=== PATIENT | female | born 1980 | race Caucasian/White ===

== ENCOUNTER 2019-06-24 18:00 | Emergency (ER) | payer OTHER ==
[~2019-06-24] VITALS: Ht 162.6 cm; Wt 117.9 kg
[2019-06-24] MEDS ORDERED: PROZAC40 MG PO (18:20)
[2019-06-24] MEDS ORDERED: LEVOXYL175 MCG PO (18:20)
[2019-06-24] MEDS ORDERED: PROPRANOLOL 20M20 MG PO (18:21)
[2019-06-24 18:41] LABS: ABSOLUTE NEUTROPHILS 4.4 thou/uL (1.4-8.2); BASOPHILS 1.3 % (0.0-2.0); EOSINOPHILS 2.8 % (0.0-3.0); HEMATOCRIT 37.1 % (37.0-47.0); HEMOGLOBIN 12.1 gm/dL (12.0-15.0); LYMPHOCYTES 31.9 % (24.0-44.0); MCH 28.9 pg (26.0-34.0); MCHC 32.7 g/dL (28.0-37.0); MCV 88.3 fL (80.0-100.0); MONOCYTES 7.7 % (1.0-8.0); PLATELET COUNT 377 thou/uL (150-400); POLYS 56.3 % (36.0-66.0); RDW 13.5 % (10.5-14.5); WBC 7.8 thou/uL (4.0-11.0)
[2019-06-24 19:04] LABS: CALCIUM 8.6 mg/dL (8.5-10.1); POTASSIUM 4.5 mmol/L (3.5-5.1)
[2019-06-24 19:08] LABS: ALBUMIN 3.4 g/dL (3.4-5.0); TOTAL BILIRUBIN 0.5 mg/dL (<0.1-1.0); TOTAL PROTEIN 7.7 g/dL (6.4-8.2)
[2019-06-24 19:18] LABS: URINE BILIRUBIN NEGATIVE (Negative); URINE BLOOD TRACE (Negative); URINE CLARITY CLEAR; URINE COLOR YELLOW; URINE GLUCOSE-RANDOM* NEGATIVE (Negative); URINE KETONES NEGATIVE (Negative); URINE LEUKOCYTES-REFLEX TRACE (Negative); URINE NITRITE-REFLEX NEGATIVE (Negative); URINE PROTEIN (DIPSTICK) NEGATIVE (Negative); URINE UROBILINOGEN 0.2 E.U./dl (0.2-1.0)
[2019-06-24] MEDS ORDERED: ONDANSETRON ODT8 MG PO (19:54)
[2019-06-24] MEDS ORDERED: TRAMADOL 50 MG50 MG PO (19:54)
[2019-06-24 20:45] VITALS: BP 107/68
== END 2019-06-24 20:45 | disposition home or self-care (01) ==
LOC: ER 18:00
PROVIDERS: Emergency Medicine
DX: R11.2 Nausea with vomiting, unspecified (principal); R19.7 Diarrhea, unspecified; R10.31 Right lower quadrant pain; F41.9 Anxiety disorder, unspecified; F32.9 Major depressive disorder, single episode, unspecified; Z98.84 Bariatric surgery status

== ENCOUNTER 2019-06-26 02:01 | Emergency (ER) | payer OTHER ==
[~2019-06-26] VITALS: Ht 162.6 cm; Wt 117.9 kg
[~2019-06-26 02:01] MED LIST: LEVOXYL175 MCG PO; ONDANSETRON ODT8 MG PO; PROPRANOLOL 20M20 MG PO; PROZAC40 MG PO; TRAMADOL 50 MG50 MG PO
[2019-06-26] MEDS ORDERED: TEMAZEPAM15 MG PO (02:22)
[2019-06-26 02:32] LABS: URINE BILIRUBIN NEGATIVE (Negative); URINE BLOOD 2+ (Negative); URINE CLARITY CLEAR; URINE COLOR YELLOW; URINE GLUCOSE-RANDOM* NEGATIVE (Negative); URINE KETONES NEGATIVE (Negative); URINE LEUKOCYTES-REFLEX NEGATIVE (Negative); URINE NITRITE-REFLEX NEGATIVE (Negative); URINE PROTEIN (DIPSTICK) NEGATIVE (Negative); URINE SPECIFIC GRAVITY 1.015 (1.005-1.035); URINE UROBILINOGEN 0.2 E.U./dl (0.2-1.0)
[2019-06-26 03:10] LABS: BACTERIA-REFLEX 1-9 Few /HPF (None Seen); CASTS None Seen /LPF (None Seen); CRYSTALS None Seen /LPF (None Seen); MUCUS 0-3 Light strn/LPF (None Seen); SQUAMOUS 0-3 Few /LPF (0-3); URINE RBC 3-10 Few /HPF (0-2); URINE WBC-REFLEX 0-5 Rare /HPF (0-5)
[2019-06-26 03:11] LABS: ABSOLUTE NEUTROPHILS 4.5 thou/uL (1.4-8.2); BASOPHILS 1.4 % (0.0-2.0); EOSINOPHILS 2.9 % (0.0-3.0); HEMATOCRIT 33.3 % (37.0-47.0); LYMPHOCYTES 30.4 % (24.0-44.0); MCH 29.2 pg (26.0-34.0); MCHC 33.1 g/dL (28.0-37.0); MCV 88.4 fL (80.0-100.0); MONOCYTES 6.8 % (1.0-8.0); PLATELET COUNT 335 thou/uL (150-400); POLYS 58.5 % (36.0-66.0); RBC 3.77 mil/uL (4.20-5.00); RDW 13.3 % (10.5-14.5); WBC 7.7 thou/uL (4.0-11.0)
[2019-06-26 03:20] LABS: CALCIUM 8.1 mg/dL (8.5-10.1); CREATININE 0.9 mg/dL (0.6-1.0); POTASSIUM 4.3 mmol/L (3.5-5.1)
[2019-06-26 03:25] LABS: ALBUMIN 3.2 g/dL (3.4-5.0); TOTAL BILIRUBIN 0.3 mg/dL (<0.1-1.0)
[2019-06-26] MEDS ORDERED: NORCO 5-325 TA1 EAC1 PO (07:17)
[2019-06-26] MEDS ORDERED: SENNA-DOCUSATE1 EAC1 PO (07:17)
[2019-06-26 08:08] VITALS: BP 106/47
== END 2019-06-26 08:09 | disposition home or self-care (01) ==
LOC: ER 02:01
PROVIDERS: Emergency Medicine
DX: N83.201 Unspecified ovarian cyst, right side (principal); R11.2 Nausea with vomiting, unspecified; F41.9 Anxiety disorder, unspecified; F32.9 Major depressive disorder, single episode, unspecified; Z87.442 Personal history of urinary calculi

== ENCOUNTER 2020-01-07 22:18 | Emergency (ER) | payer OTHER ==
[~2020-01-07] VITALS: Ht 162.6 cm; Wt 120.2 kg
[~2020-01-07 22:18] MED LIST changes: +NORCO 5-325 TA1 EAC1 PO; +SENNA-DOCUSATE1 EAC1 PO; +TEMAZEPAM15 MG PO
[2020-01-07 23:47] LABS: BASOPHILS 0.6 % (0.0-2.0); EOSINOPHILS 1.4 % (0.0-3.0); HEMATOCRIT 37.4 % (37.0-47.0); LYMPHOCYTES 34.4 % (24.0-44.0); MCH 31.1 pg (26.0-34.0); MCHC 34.8 g/dL (28.0-37.0); MCV 89.5 fL (80.0-100.0); MONOCYTES 6.7 % (1.0-8.0); PLATELET COUNT 331 thou/uL (150-400); POLYS 56.9 % (36.0-66.0); RBC 4.18 mil/uL (4.20-5.00); RDW 14.2 % (10.5-14.5); WBC 8.7 thou/uL (4.0-11.0)
[2020-01-07 23:48] LABS: URINE BILIRUBIN NEGATIVE (Negative); URINE BLOOD NEGATIVE (Negative); URINE CLARITY CLEAR; URINE COLOR YELLOW; URINE GLUCOSE-RANDOM* NEGATIVE (Negative); URINE KETONES NEGATIVE (Negative); URINE LEUKOCYTES-REFLEX NEGATIVE (Negative); URINE NITRITE-REFLEX NEGATIVE (Negative); URINE PROTEIN (DIPSTICK) NEGATIVE (Negative); URINE UROBILINOGEN 0.2 E.U./dl (0.2-1.0)
[2020-01-08 00:11] LABS: CALCIUM 8.3 mg/dL (8.5-10.1); CREATININE 0.8 mg/dL (0.6-1.0); POTASSIUM 3.9 mmol/L (3.5-5.1)
[2020-01-08 00:15] LABS: ALBUMIN 3.4 g/dL (3.4-5.0); DIRECT BILIRUBIN 0.1 mg/dL (<0.1-0.2); TOTAL BILIRUBIN 0.5 mg/dL (0.2-1.0); TOTAL PROTEIN 7.4 g/dL (6.4-8.2)
[2020-01-08] MEDS ORDERED: PHENERGAN50 MG RECTAL (03:52)
[2020-01-08] MEDS ORDERED: NORCO 5-325 TA1 EAC2 PO (03:52)
[2020-01-08 04:06] VITALS: BP 120/65
== END 2020-01-08 04:08 | disposition home or self-care (01) ==
LOC: ER 22:18
PROVIDERS: Emergency Medicine
DX: N83.201 Unspecified ovarian cyst, right side (principal); R11.10 Vomiting, unspecified; R19.7 Diarrhea, unspecified; M54.5 Low back pain; R39.11 Hesitancy of micturition; F32.9 Major depressive disorder, single episode, unspecified; F41.9 Anxiety disorder, unspecified; Z98.84 Bariatric surgery status; Z90.49 Acquired absence of other specified parts of digestive tract; Z79.899 Other long term (current) drug therapy

== ENCOUNTER 2020-02-18 21:32 | Inpatient (IN) | payer OTHER ==
[~2020-02-18] VITALS: Ht 162.6 cm; Wt 116.6 kg
[~2020-02-18 21:32] MED LIST changes: +NORCO 5-325 TA1 EAC2 PO; +PHENERGAN50 MG RECTAL
[2020-02-18 21:33] VITALS: BP 119/66
[2020-02-18 21:55] LABS: URINE BILIRUBIN NEGATIVE (Negative); URINE BLOOD 3+ (Negative); URINE CLARITY CLEAR; URINE COLOR YELLOW; URINE GLUCOSE-RANDOM* NEGATIVE (Negative); URINE KETONES NEGATIVE (Negative); URINE LEUKOCYTES-REFLEX NEGATIVE (Negative); URINE NITRITE-REFLEX NEGATIVE (Negative); URINE PROTEIN (DIPSTICK) 1+ (Negative); URINE SPECIFIC GRAVITY 1.025 (1.005-1.035); URINE UROBILINOGEN 0.2 E.U./dl (0.2-1.0)
[2020-02-18 21:56] LABS: BASOPHILS 0.6 % (0.0-2.0); EOSINOPHILS 1.6 % (0.0-3.0); HEMOGLOBIN 12.5 gm/dL (12.0-15.0); LYMPHOCYTES 24.8 % (24.0-44.0); MCH 30.3 pg (26.0-34.0); MCHC 34.7 g/dL (28.0-37.0); MCV 87.3 fL (80.0-100.0); MONOCYTES 5.3 % (1.0-8.0); PLATELET COUNT 358 thou/uL (150-400); POLYS 67.7 % (36.0-66.0); RBC 4.13 mil/uL (4.20-5.00); RDW 13.7 % (10.5-14.5); WBC 8.9 thou/uL (4.0-11.0)
[2020-02-18 22:11] LABS: CALCIUM 8.8 mg/dL (8.5-10.1); POTASSIUM 3.6 mmol/L (3.5-5.1)
[2020-02-18 22:16] LABS: CASTS None Seen /LPF (None Seen); CRYSTALS None Seen /LPF (None Seen); SQUAMOUS 4-10 Moderate /LPF (0-3)
[2020-02-18 22:17] LABS: ALBUMIN 3.4 g/dL (3.4-5.0); TOTAL BILIRUBIN 0.4 mg/dL (0.2-1.0); TOTAL PROTEIN 7.7 g/dL (6.4-8.2)
[2020-02-18 22:17] LABS: URINE WBC-REFLEX None Seen /HPF (0-5)
[2020-02-19 04:10] VITALS: BP 119/53
[2020-02-19 04:13] VITALS: BP 119/53
[2020-02-19 04:58] VITALS: BP 114/56
--- NOTE | 2020-02-19 06:22 | NUR ---
PT ARRIVED FROM ER @0430 A&OX4. ADMISSION DONE AND PT ORIENTED TO THE UNIT. PT C/O PAIN 8/10 IN RLG AND NAUSEA. PT NPO. MEDICATION GIVEN SEE EMAR. NEW IV 22G INSERTED IN LEFT FA. PT UP AD EKATERINA. FALL EDUCATION PROVIDED. CALL LIGHT AT REACH AND WILL CONT TO MONITOR.
[2020-02-19 07:55] VITALS: BP 105/59
[2020-02-19 15:30] VITALS: BP 117/61
--- NOTE | 2020-02-19 16:15 | NUR ---
ASSESSMENT: CM REVIEWED CHART AND SPOKE WITH PATIENT. PT IS ALERT AND ORIENTED X4. PT IS HERE DUE TO ABDOMINAL PAIN. PT REPORTS THAT SHE LIVES IN AN APT WITH HER AND CHILDREN. PT REPORTS 8 STEPS WITH HANDRAILS TO ENTER AND NO STEPS ONCE INSIDE. PT REPORTS BEING FULLY INDEPENDENT WITH ADLS AND AMBULATION. PT REPORTS NO HX OF HH OR SNF. CM DISCUSSED ROLE. PT DOES NOT ANTICIPATE HAVING ANY NEEDS PRIOR TO DISCHARGE. CM WILL CONTINUE TO FOLLOW TO ASSIST NEEDED.
--- NOTE | 2020-02-19 19:45 | NUR ---
PT ASSESSED AT START OF SHIFT. C/O ABD PAIN AND NAUSEA THIS AM. MORPHINE CHANGED TO FENTANYL AND HAS BEEN WORKING BETTER. DID NOT WANT ANY CLEARS EXCEPT WATER. PLAN FOR EGD IN AM. NPO AFTER MIDNOC.
--- NOTE | 2020-02-20 03:04 | NUR ---
PT ASSESSED AT START OF SHIFT. FENTANYL GIVEN FOR ABD PAIN 12/15. ZOFRAN ALSO GIVEN FOR NAUSEA NO EMESIS. PT UP AD EKATERINA. IV INTACT AND FLUIDS INFUSING. PT NPO AFTER MIDNIGHT FOR EGD TOMORROW. WILL CONT TO MONITOR.
[2020-02-20 05:30] VITALS: BP 120/62
[2020-02-20 06:27] LABS: HEMATOCRIT 33.6 % (37.0-47.0); HEMOGLOBIN 11.3 gm/dL (12.0-15.0); MCH 29.6 pg (26.0-34.0); MCHC 33.7 g/dL (28.0-37.0); RBC 3.82 mil/uL (4.20-5.00); RDW 13.7 % (10.5-14.5); WBC 6.7 thou/uL (4.0-11.0)
[2020-02-20 06:29] LABS: CALCIUM 8.4 mg/dL (8.5-10.1); CREATININE 0.9 mg/dL (0.6-1.0); POTASSIUM 4.2 mmol/L (3.5-5.1)
[2020-02-20] MEDS ORDERED: LORCET 5-325 M1 EACH PO (11:25)
[2020-02-20] MEDS ORDERED: PROTONIX40 M2 PO (11:25)
[2020-02-20] MEDS ORDERED: ONDANSETRON HCL4 M2 PO (11:25)
[2020-02-20 11:38] VITALS: BP 120/62
--- NOTE | 2020-02-20 14:21 | NUR ---
Assumed care of pt. at 0700. Pt. was calm and cooperative. Pt. complain of pain in abdominal region. Pt. was taken down for EGD around 0800. Pt. returned to unit, was assessed by Dr. Porter and cleared for discharge. Discharge teaching performed. Pt. discharged off unit with belongings and .
--- NOTE | 2020-02-20 15:07 | NUR ---
ON-GOING ASSESSMENT: PT HAS ORDERS TO DISCHARGE HOME TODAY NO NEEDS.
== END 2020-02-20 13:09 | disposition home or self-care (01) | DRG 392 ==
LOC: ER 21:32 → EROBS 02-19 03:58 → 4S 02-19 03:58
PROVIDERS: Emergency Medicine; Nurse Practitioner Family; ADMIT Hospitalist; ATTEND Hospitalist
PROC: 0DJ08ZZ Inspection of Upper Intestinal Tract, Via Natural or Artificial Opening Endoscopic (ICD-10-PCS; principal; 2020-02-20)
DX: K52.9 Noninfective gastroenteritis and colitis, unspecified (principal); K92.0 Hematemesis; K83.09 Other cholangitis; R10.9 Unspecified abdominal pain; F32.9 Major depressive disorder, single episode, unspecified; K21.9 Gastro-esophageal reflux disease without esophagitis; K27.9 Peptic ulcer, site unspecified, unspecified as acute or chronic, without hemorrhage or perforation; F41.9 Anxiety disorder, unspecified; Z20.828 Contact with and (suspected) exposure to other viral communicable diseases; Z98.84 Bariatric surgery status; Z90.49 Acquired absence of other specified parts of digestive tract; Z79.899 Other long term (current) drug therapy
CPT/HCPCS: 10195; 62110; 62900; 70005

== ENCOUNTER 2020-05-27 17:22 | Emergency (ER) | payer OTHER ==
[~2020-05-27] VITALS: Ht 162.6 cm; Wt 106.6 kg
[~2020-05-27 17:22] MED LIST changes: +LORCET 5-325 M1 EACH PO; +ONDANSETRON HCL4 M2 PO; +PROTONIX40 M2 PO
[2020-05-27 17:27] VITALS: BP 157/90
[2020-05-27] MEDS ORDERED: MULTI-BETIC TA1 EACH PO (17:33)
[2020-05-27 17:57] LABS: ABSOLUTE NEUTROPHILS 4.5 thou/uL (1.4-8.2); BASOPHILS 0.7 % (0.0-2.0); EOSINOPHILS 1.1 % (0.0-3.0); HEMOGLOBIN 13.5 gm/dL (12.0-15.0); LYMPHOCYTES 27.2 % (24.0-44.0); MCH 28.6 pg (26.0-34.0); MCHC 32.9 g/dL (28.0-37.0); MONOCYTES 6.8 % (1.0-8.0); PLATELET COUNT 304 thou/uL (150-400); POLYS 64.2 % (36.0-66.0); RBC 4.71 mil/uL (4.20-5.00); RDW 15.4 % (10.5-14.5); WBC 7.1 thou/uL (4.0-11.0)
[2020-05-27 18:13] LABS: CALCIUM 9.3 mg/dL (8.5-10.1); POTASSIUM 3.8 mmol/L (3.5-5.1)
[2020-05-27 18:16] LABS: ALBUMIN 3.5 g/dL (3.4-5.0); DIRECT BILIRUBIN 0.2 mg/dL (<0.1-0.2); TOTAL BILIRUBIN 0.9 mg/dL (0.2-1.0); TOTAL PROTEIN 7.6 g/dL (6.4-8.2)
[2020-05-27 18:49] LABS: URINE BILIRUBIN NEGATIVE (Negative); URINE BLOOD 2+ (Negative); URINE CLARITY CLEAR; URINE COLOR YELLOW; URINE GLUCOSE-RANDOM* NEGATIVE (Negative); URINE KETONES 1+ (Negative); URINE NITRITE-REFLEX NEGATIVE (Negative); URINE PROTEIN (DIPSTICK) NEGATIVE (Negative)
[2020-05-27 18:50] LABS: URINE LEUKOCYTES-REFLEX 3+ (Negative)
[2020-05-27 19:02] LABS: BACTERIA-REFLEX 1-9 Few /HPF (None Seen); CASTS None Seen /LPF (None Seen); CRYSTALS None Seen /LPF (None Seen); MUCUS 0-3 Light strn/LPF (None Seen); SQUAMOUS 4-10 Moderate /LPF (0-3); URINE RBC 0-2 Rare /HPF (0-2)
[2020-05-27] MEDS ORDERED: KEFLEX500 M1 PO (19:48)
== END 2020-05-27 19:57 | disposition home or self-care (01) ==
LOC: ER 17:22
PROVIDERS: Nurse Practitioner
DX: N39.0 Urinary tract infection, site not specified (principal); F32.9 Major depressive disorder, single episode, unspecified; F41.9 Anxiety disorder, unspecified; E66.9 Obesity, unspecified; Z98.84 Bariatric surgery status; Z90.49 Acquired absence of other specified parts of digestive tract; Z79.899 Other long term (current) drug therapy; Z68.41 Body mass index [BMI] 40.0-44.9, adult

== ENCOUNTER 2020-07-14 13:33 | Emergency (ER) | payer OTHER ==
[~2020-07-14] VITALS: Ht 162.6 cm; Wt 105.7 kg
[~2020-07-14 13:33] MED LIST changes: +KEFLEX500 M1 PO; +MULTI-BETIC TA1 EACH PO
[2020-07-14 14:23] LABS: URINE BILIRUBIN NEGATIVE (Negative); URINE BLOOD 2+ (Negative); URINE CLARITY CLEAR; URINE COLOR YELLOW; URINE GLUCOSE-RANDOM* NEGATIVE (Negative); URINE KETONES NEGATIVE (Negative); URINE NITRITE-REFLEX NEGATIVE (Negative); URINE PROTEIN (DIPSTICK) NEGATIVE (Negative); URINE SPECIFIC GRAVITY <= 1.005 (1.005-1.035); URINE UROBILINOGEN 0.2 E.U./dl (0.2-1.0)
[2020-07-14 14:25] LABS: URINE LEUKOCYTES-REFLEX 3+ (Negative)
[2020-07-14 14:31] LABS: ABSOLUTE NEUTROPHILS 5.6 thou/uL (1.4-8.2); BASOPHILS 0.7 % (0.0-2.0); EOSINOPHILS 1.5 % (0.0-3.0); HEMATOCRIT 39.3 % (37.0-47.0); LYMPHOCYTES 22.9 % (24.0-44.0); MCH 28.7 pg (26.0-34.0); MCV 87.1 fL (80.0-100.0); MONOCYTES 5.7 % (1.0-8.0); PLATELET COUNT 310 thou/uL (150-400); POLYS 69.2 % (36.0-66.0); RBC 4.51 mil/uL (4.20-5.00); RDW 14.6 % (10.5-14.5)
[2020-07-14 14:32] LABS: SQUAMOUS >10 Many /LPF (0-3)
[2020-07-14 14:33] LABS: BACTERIA-REFLEX >30 Many /HPF (None Seen); URINE RBC 0-2 Rare /HPF (0-2); URINE WBC-REFLEX 0-5 Rare /HPF (0-5)
[2020-07-14 14:36] LABS: CASTS None Seen /LPF (None Seen); CRYSTALS None Seen /LPF (None Seen)
[2020-07-14 14:38] LABS: CALCIUM 8.7 mg/dL (8.5-10.1); CREATININE 0.9 mg/dL (0.6-1.0); POTASSIUM 3.9 mmol/L (3.5-5.1)
[2020-07-14 14:44] LABS: ALBUMIN 3.3 g/dL (3.4-5.0); TOTAL BILIRUBIN 0.6 mg/dL (0.2-1.0); TOTAL PROTEIN 7.5 g/dL (6.4-8.2)
[2020-07-14] MEDS ORDERED: CIPRO500 M1 PO (18:14)
[2020-07-14] MEDS ORDERED: PHENERGAN 25 MG25 M1 PO (18:14)
[2020-07-14] MEDS ORDERED: NORCO5 PO (18:14)
[2020-07-14 18:15] VITALS: BP 128/70
== END 2020-07-14 18:15 | disposition home or self-care (01) ==
LOC: ER 13:33
PROVIDERS: Nurse Practitioner Family
DX: N12 Tubulo-interstitial nephritis, not specified as acute or chronic (principal); Z79.899 Other long term (current) drug therapy

== ENCOUNTER 2020-07-17 19:06 | Inpatient (IN) | payer OTHER ==
[~2020-07-17] VITALS: Ht 162.6 cm; Wt 105.7 kg
[~2020-07-17 19:06] MED LIST changes: +CIPRO500 M1 PO; +NORCO5 PO; +PHENERGAN 25 MG25 M1 PO
[2020-07-17 19:08] VITALS: BP 108/66
[2020-07-17 19:20] LABS: URINE BILIRUBIN NEGATIVE (Negative); URINE BLOOD 1+ (Negative); URINE CLARITY CLEAR; URINE COLOR YELLOW; URINE GLUCOSE-RANDOM* NEGATIVE (Negative); URINE KETONES NEGATIVE (Negative); URINE NITRITE-REFLEX NEGATIVE (Negative); URINE PROTEIN (DIPSTICK) NEGATIVE (Negative); URINE UROBILINOGEN 0.2 E.U./dl (0.2-1.0)
[2020-07-17 19:21] LABS: URINE LEUKOCYTES-REFLEX 3+ (Negative)
[2020-07-17 19:31] LABS: BACTERIA-REFLEX >30 Many /HPF (None Seen); SQUAMOUS >10 Many /LPF (0-3)
[2020-07-17 19:32] LABS: URINE RBC 0-2 Rare /HPF (0-2); URINE WBC-REFLEX 6-15 Few /HPF (0-5); WBC CLUMPS Few (None Seen)
[2020-07-17 19:33] LABS: CASTS None Seen /LPF (None Seen); CRYSTALS None Seen /LPF (None Seen)
[2020-07-17 19:45] LABS: ABSOLUTE NEUTROPHILS 6.2 thou/uL (1.4-8.2); EOSINOPHILS 1.6 % (0.0-3.0); HEMATOCRIT 37.4 % (37.0-47.0); HEMOGLOBIN 12.7 gm/dL (12.0-15.0); LYMPHOCYTES 25.9 % (24.0-44.0); MCH 29.5 pg (26.0-34.0); MCV 86.9 fL (80.0-100.0); PLATELET COUNT 304 thou/uL (150-400); POLYS 65.5 % (36.0-66.0); RDW 15.1 % (10.5-14.5); WBC 9.5 thou/uL (4.0-11.0)
[2020-07-17 19:56] LABS: CALCIUM 9.2 mg/dL (8.5-10.1); POTASSIUM 3.7 mmol/L (3.5-5.1)
[2020-07-17 20:01] LABS: ALBUMIN 3.4 g/dL (3.4-5.0); TOTAL BILIRUBIN 0.4 mg/dL (0.2-1.0); TOTAL PROTEIN 7.5 g/dL (6.4-8.2)
[2020-07-17 21:39] VITALS: BP 109/68
[2020-07-17 22:10] VITALS: BP 115/60
--- NOTE | 2020-07-17 22:45 | NUR ---
Pt. was admitted to the unit accompanied by staff. She is alert and oriented. Pt. was oriented to staff and to the room. She is up ad nory.
[2020-07-17 22:49] VITALS: BP 109/65
--- NOTE | 2020-07-18 05:07 | NUR ---
Pt. rested quietly at intervals during the night when checked on during frequent rounds. She c/o nausea and iv zofran given (see emar) with some relief. Pt. also c/o bilateral flank pain and suprpubic pain. She was medicated for both (see emar) with some relief noted.
[2020-07-18 07:30] VITALS: BP 108/46
--- NOTE | 2020-07-18 17:45 | NUR ---
ASSUMED CARE OF PATIENT AT 0700. ASSESSMENT CHARTED. MEDICATIONS ADMINISTERED PER EMAR. PATIENT IS A&OX4 AND MAKES NEEDS KNOWN. CONTINUES TO AMBULATE INDEPENDENTLY W STEADY GAIT. PATIENT C/O CONSTANT FLANK AND SUPRAPUBIC PAIN, PARTIALLY RELIEVED WITH PRN ANALGESICS. PATIENT DIET ADVANCED TO FULL LIQUIDS AND GIVEN ICE CREAM; TOLERATING W NO ISSUES. IV WENT BAD ON L AC. IRRITATION ON TAPE SITE NOTED BUT NO S/S OF INFILTRATION OR PHLEBITIS. PATIENT TOLERATING LIQUIDS WELL W EXCELLENT PO FLUID INTAKE. SPOUSE AT BEDSIDE. FREQUENT CHECKS ON PATIENT. VOICING NO NEEDS AT THIS TIME. WILL CONTINUE TO MONITOR
[2020-07-18 20:50] VITALS: BP 105/62
--- NOTE | 2020-07-19 03:03 | NUR ---
PT CARE ASSUMED WITH PT IN BED WATCHING TV AT 1900.PT IS A/O X4.PT IS UP AD EKATERINA.PT C/O LOWER ABD PAIN AND AMOS FLANK PAIN.PAIN MANAGED WITH NORCO AND FENTANYL WITH PARTIAL RELIEF.WILL CONTINUE TO MONITOR PER POC
[2020-07-19 09:40] VITALS: BP 110/57
[2020-07-19 11:55] VITALS: BP 92/54
[2020-07-19 13:44] LABS: HEMATOCRIT 31.9 % (37.0-47.0); MCH 29.3 pg (26.0-34.0); MCHC 33.1 g/dL (28.0-37.0); MCV 88.6 fL (80.0-100.0); RBC 3.61 mil/uL (4.20-5.00); RDW 14.9 % (10.5-14.5); WBC 5.4 thou/uL (4.0-11.0)
[2020-07-19 13:46] LABS: HEMOGLOBIN 10.6 gm/dL (12.0-15.0)
[2020-07-19 13:54] LABS: CALCIUM 8.1 mg/dL (8.5-10.1); CREATININE 0.9 mg/dL (0.6-1.0); MAGNESIUM 1.8 mg/dL (1.8-2.4); POTASSIUM 3.9 mmol/L (3.5-5.1)
[2020-07-19 15:59] VITALS: BP 112/64
--- NOTE | 2020-07-19 17:42 | NUR ---
ASSUMED PATIENT CARE AT [facility]. ASSESSMENT CHARTED. MEDICATIONS ADMINISTERED PER EMAR. VSS. PATIENT IS A&OX4 AND GETS UP INDEPENDENTLY. DENIES DIZZINESS OR SOB. C/O CONSTANT PAIN AT FLANK AREA. RELIEVED W PRN PAIN MEDICATION. UA AND LABS DRAWN THIS DAY PER PROVIDER ORDER. PATIENT TOLERATING PO INTAKE WELL W NO ISSUES. VOIDING PER TOILET W NO ISSUES. PLAN FOR PATIENT TO STAY ONE MORE OVERNIGHT AND D/C TOMORROW 07/20 WHEN URINE CULTURE RETURN. WILL CONTINUE TO MONITOR
[2020-07-19 20:09] VITALS: BP 134/67
--- NOTE | 2020-07-20 03:58 | NUR ---
PT AMBULATING TO BATHROOM INDEPENDENTLY AND IS TOLERATING WELL. LORTAB AND FENTANYL PROVIDING PAIN RELIEF. DENIES NAUSEA. RESTING COMFORTABLY. NO NEEDS VOICED. CALL LIGHT WITHIN REACH. FREQUENT OBSERVATION.
[2020-07-20 08:11] VITALS: BP 112/72
[2020-07-20] MEDS ORDERED: CEFUROXIME500 MG PO (10:37)
[2020-07-20] MEDS ORDERED: ACETAMINOPHEN325 M1 PO (10:37)
[2020-07-20] MEDS ORDERED: NORCO5 PO (10:37)
[2020-07-20 13:48] VITALS: BP 112/72
--- NOTE | 2020-07-20 13:53 | NUR ---
PT ADMITTED RELATED TO INTRACTABLE PAIN, PYELO, FAILED OP TREATMENT. PT INDICATED SHE LIVES IN A DUPLEX WIHT HER SPOUSE AND 4 CHILDREN. PT HAD BEEN INDEPENDENT WITH GAIT AND ADLS [employer]. PT INDICATED THAT THERE ARE 7 STEPS TO ENTER AND 3 FLIGHTS INSIDE. PT INDICATED SHE PLANS TO RETURN HOME ONCE MEDICALLY STABLE. PT'S PCP IS DR. MISTY GIVENS. PT TO DC HOME TO SELF CARE THIS DAY. PT'S SPOUSE TO TRANSPORT HOME. NO OTHER CM INTERVENTION INDICATED. CASE CLOSED.
--- NOTE | 2020-07-20 14:00 | NUR ---
PT ASSESSED START OF SHIFT. IV ANTIBIOTIC GIVEN THIS AM. PT FEELING BETTER BUT STILL HAVING FLANK PAIN. DISCHARGED AT THIS TIME. WILL F/U W/ UROLOGY AFTER PO ANTIBIOTICS.
== END 2020-07-20 14:20 | disposition home or self-care (01) | DRG 872 ==
LOC: ER 19:06 → EROBS 21:17 → 4W 22:03
PROVIDERS: Physician Assistant; ADMIT Internal Medicine; ATTEND Internal Medicine
DX: A41.9 Sepsis, unspecified organism (principal); N10 Acute pyelonephritis; Z68.41 Body mass index [BMI] 40.0-44.9, adult; N39.0 Urinary tract infection, site not specified; F32.9 Major depressive disorder, single episode, unspecified; E66.01 Morbid (severe) obesity due to excess calories; I95.9 Hypotension, unspecified; M54.5 Low back pain; F41.1 Generalized anxiety disorder; Z90.49 Acquired absence of other specified parts of digestive tract; Z98.84 Bariatric surgery status; Z79.899 Other long term (current) drug therapy
CPT/HCPCS: 10040

== ENCOUNTER 2020-08-06 17:24 | Inpatient (IN) | payer OTHER ==
[~2020-08-06] VITALS: Ht 162.6 cm; Wt 102.1 kg
[~2020-08-06 17:24] MED LIST changes: +ACETAMINOPHEN325 M1 PO; +CEFUROXIME500 MG PO
[2020-08-06 18:03] LABS: URINE BILIRUBIN NEGATIVE (Negative); URINE BLOOD 1+ (Negative); URINE CLARITY CLEAR; URINE COLOR YELLOW; URINE GLUCOSE-RANDOM* NEGATIVE (Negative); URINE KETONES NEGATIVE (Negative); URINE NITRITE-REFLEX NEGATIVE (Negative); URINE PROTEIN (DIPSTICK) NEGATIVE (Negative); URINE UROBILINOGEN 0.2 E.U./dl (0.2-1.0)
[2020-08-06 18:08] LABS: URINE LEUKOCYTES-REFLEX 3+ (Negative)
[2020-08-06 18:15] LABS: CASTS None Seen /LPF (None Seen); SQUAMOUS 0-3 Few /LPF (0-3)
[2020-08-06 18:16] LABS: BACTERIA-REFLEX 1-9 Few /HPF (None Seen); CRYSTALS None Seen /LPF (None Seen); URINE RBC 3-10 Few /HPF (0-2); URINE WBC-REFLEX 6-15 Few /HPF (0-5)
[2020-08-06 18:18] VITALS: BP 116/89
[2020-08-06 19:31] LABS: ABSOLUTE NEUTROPHILS 5.6 thou/uL (1.4-8.2); BASOPHILS 1.2 % (0.0-2.0); EOSINOPHILS 1.3 % (0.0-3.0); HEMATOCRIT 40.1 % (37.0-47.0); HEMOGLOBIN 13.2 gm/dL (12.0-15.0); LYMPHOCYTES 23.4 % (24.0-44.0); MCH 29.2 pg (26.0-34.0); MCHC 32.9 g/dL (28.0-37.0); MCV 88.7 fL (80.0-100.0); MONOCYTES 6.4 % (1.0-8.0); PLATELET COUNT 307 thou/uL (150-400); POLYS 67.7 % (36.0-66.0); RBC 4.52 mil/uL (4.20-5.00); RDW 14.1 % (10.5-14.5); WBC 8.2 thou/uL (4.0-11.0)
[2020-08-06 19:41] LABS: CALCIUM 9.1 mg/dL (8.5-10.1); CREATININE 0.9 mg/dL (0.6-1.0); POTASSIUM 4.6 mmol/L (3.5-5.1)
[2020-08-06 19:47] LABS: ALBUMIN 3.4 g/dL (3.4-5.0); TOTAL BILIRUBIN 0.6 mg/dL (0.2-1.0); TOTAL PROTEIN 7.8 g/dL (6.4-8.2)
[2020-08-06 21:49] VITALS: BP 87/51
[2020-08-06 21:55] VITALS: BP 94/45
[2020-08-06 23:23] VITALS: BP 99/61
--- NOTE | 2020-08-07 03:36 | NUR ---
RECIEVED CARE OF THIS PATIENT AT 2250 FROM ED VIA W/C ACCOMPANIED BY ED PERSONEL. PATIENT ALERT AND ORIENTED X4. NPO SINCE MN FOR A PROCEDURE THIS AM. HAT PLACED IN BATHROOM AND A STRAINER PLACED THERE. PATIENT ADVISED TO WHY. C/O SEVERE PAIN IN LOWER R BACK AND LOWER ABD. MED GIVEN. PATIENT UP AD EKATERINA. PATIENT SLEPT LITTLE THIS SHIFT.
[2020-08-07 05:24] VITALS: BP 102/53
[2020-08-07 06:27] LABS: HEMATOCRIT 36.2 % (37.0-47.0); MCH 29.7 pg (26.0-34.0); MCHC 33.1 g/dL (28.0-37.0); MCV 89.6 fL (80.0-100.0); RBC 4.04 mil/uL (4.20-5.00); WBC 8.1 thou/uL (4.0-11.0)
[2020-08-07 06:33] LABS: CALCIUM 8.2 mg/dL (8.5-10.1); CREATININE 0.9 mg/dL (0.6-1.0)
[2020-08-07 07:55] VITALS: BP 103/63
--- NOTE | 2020-08-07 08:44 | NUR ---
ASSESSMENT: CM REVIEWED CHART AND SPOKE WITH PATIENT. PT IS ALERT AND ORIENTED X4. PT REPORTS LIVING IN A DUPLEX WITH HER AND FOUR CHILDREN. PT WAS ADMITTED WITH RECURRENT PYLENEPHRITIS AND IS CURRENTLY ON IV FLUIDS AND IV ANBX. PT REPORTS SHE HAS ABOUT 7 STEPS TO ENTER HER DUPLEX WITH HANDRAIL AND ABOUT ANOTHER 7 STEPS WITH HANDRAILS TO HER BEDROOM. PT REPORTS BEING FULLY INDEPENDENT WITH ADLS AND AMBULATION. PT DENIES ANY HX OF HH OR SNF. PT REPORTS HER PCP IS DR. MISTY GIVENS. CM DISCUSSED ROLE. PT DOES NOT ANTICIPATE HAVING ANY NEEDS FROM CM PRIOR TO DISCHARGE.
--- NOTE | 2020-08-07 20:07 | NUR ---
ASSUMED CARE OF PATIENT AT 0700. ASSESSMENT CHARTED. MEDS ADMINISTERED PER EMAR. VSS. PATIENT A&OX4 AND UP ADLIB. C/O PAIN CONSTANT ON BACK (KIDNEY AREA) AND SOME SUPRAPUBIC PRESSURE. BLADDER SCANNED W 0ML RESIDUAL POST VOID. URINE BEING STRAINED EACH TIME POST VOIDING TO MONITOR FOR RENAL CALCULI. ID CONSULTED. PATIENT HAD 1 EPISODE OF NAUSEA WITH VOMITING W SOME EMESIS "FROM PAIN" PER PATIENT. PATIENT PROVIDED RELIEF W REPOSITIONING AND MEDICATION. NO OTHER NEEDS VOICED. ENDORSED TO NOC RN.
[2020-08-07 20:44] VITALS: BP 107/63
--- NOTE | 2020-08-08 03:49 | NUR ---
Pt. c/o chronic flank pain throughout the shift and has been given pain meds (see emar) with some relief noted. No emesis this shift. Up ad nory to the bathroom. No passing of any kidney stone.
[2020-08-08 08:00] VITALS: BP 106/62
--- NOTE | 2020-08-08 08:20 | NUR ---
Assumed pt care at 7am.Pt in bed resting .Assessment completed.vss.Pt c/o rt flank pain rated 9/10.2 hydrocodone tans given with relief.Will continuen to monitor.
[2020-08-08 16:38] VITALS: BP 103/67
--- NOTE | 2020-08-08 18:33 | NUR ---
Assumed pt care at 7am.Assessment completed.vss. Pt was anxious and worried about getting solution to her abdominal pain.Dr Muñoz and diamond driller for urology here.New order noted.Pt tolerated meds and diet.Pt went for ct abd/pelvis after lunch and report reviewed with pt and Dr Muñoz. Obgyn consulted for further eveal.Pt medicated several times today with both po and ivp. here,updates given. Pt in bed resting at present.Will continue to monitor.
[2020-08-08 21:40] VITALS: BP 114/63
[2020-08-09 03:30] VITALS: BP 110/63
--- NOTE | 2020-08-09 04:48 | NUR ---
RECEIVED CARE OF THIS PATIENT AT 1900. PATIENT ALERT AND ORIENTED X4. UP AND ABOUT IN ROOM. C/O PAIN, MED GIVEN. IV PATENT IN LAC WITH FLUIDS INFUSING. STRAINING ALL URINE. SLEPT LITTLE THIS SHIFT.
[2020-08-09 07:25] VITALS: BP 113/53
[2020-08-09 08:16] VITALS: BP 113/53
[2020-08-09] MEDS ORDERED: OXYBUTYNIN 5 MG5 M1 PO (09:46)
[2020-08-09 10:27] VITALS: BP 113/53
--- NOTE | 2020-08-09 10:31 | NUR ---
ASSUMED PT CARE THIS AM. PT IS ALERT & ORIENTED X4. PT HAS IV SITE ON L AC RUNNING NS @ 125ML/HR. PT IS UP AD EKATERINA. PT C/O OF PAIN AND GIVEN PAIN MEDICATION. PT AT THE BEDSIDE. PT ON THE BED WATCHING TV, BED ON THE LOWEST POSITION, CALL LIGHT WITHIN REACH. WILL CONTINUE TO MONITOR PT.
[2020-08-09] MEDS ORDERED: NORCO5 PO (12:12)
== END 2020-08-09 10:51 | disposition home or self-care (01) | DRG 694 ==
LOC: ER 17:24 → EROBS 21:31 → 4S 22:47
PROVIDERS: Nurse Practitioner Family; Physician Assistant; ADMIT Hospitalist; ATTEND Hospitalist
DX: N20.0 Calculus of kidney (principal); F32.9 Major depressive disorder, single episode, unspecified; F41.9 Anxiety disorder, unspecified; Z98.84 Bariatric surgery status; Z90.49 Acquired absence of other specified parts of digestive tract; Z79.899 Other long term (current) drug therapy
CPT/HCPCS: 10102

== ENCOUNTER 2020-08-26 16:54 | Emergency (ER) | payer OTHER ==
[~2020-08-26] VITALS: Ht 162.6 cm; Wt 102.1 kg
[~2020-08-26 16:54] MED LIST changes: +OXYBUTYNIN 5 MG5 M1 PO
[2020-08-26 18:28] LABS: ABSOLUTE NEUTROPHILS 5.1 thou/uL (1.4-8.2); BASOPHILS 0.6 % (0.0-2.0); HEMATOCRIT 39.5 % (37.0-47.0); LYMPHOCYTES 27.9 % (24.0-44.0); MCH 29.5 pg (26.0-34.0); MCV 89.5 fL (80.0-100.0); MONOCYTES 5.5 % (1.0-8.0); PLATELET COUNT 341 thou/uL (150-400); RBC 4.41 mil/uL (4.20-5.00)
[2020-08-26 18:32] LABS: URINE CLARITY SL HAZY; URINE COLOR YELLOW; URINE PROTEIN (DIPSTICK) TRACE (Negative); URINE SPECIFIC GRAVITY 1.015 (1.005-1.035)
[2020-08-26 18:33] LABS: URINE BILIRUBIN NEGATIVE (Negative); URINE GLUCOSE-RANDOM* NEGATIVE (Negative); URINE KETONES NEGATIVE (Negative)
[2020-08-26 18:34] LABS: ICTOTEST (BILI CONFIRMATORY) Negative (Negative); URINE BLOOD 1+ (Negative); URINE LEUKOCYTES-REFLEX 3+ (Negative); URINE NITRITE-REFLEX NEGATIVE (Negative); URINE UROBILINOGEN 0.2 E.U./dl (0.2-1.0)
[2020-08-26 18:37] LABS: CASTS None Seen /LPF (None Seen); MUCUS 4-6 Moderate strn/LPF (None Seen); SQUAMOUS None Seen /LPF (0-3)
[2020-08-26 18:37] LABS: CALCIUM 8.8 mg/dL (8.5-10.1); POTASSIUM 4.1 mmol/L (3.5-5.1)
[2020-08-26 18:38] LABS: CRYSTALS None Seen /LPF (None Seen); URINE RBC 3-10 Few /HPF (0-2); URINE WBC-REFLEX >25 Many /HPF (0-5)
[2020-08-26 20:26] LABS: ALBUMIN 3.3 g/dL (3.4-5.0); DIRECT BILIRUBIN 0.1 mg/dL (<0.1-0.2); TOTAL BILIRUBIN 0.5 mg/dL (0.2-1.0); TOTAL PROTEIN 7.8 g/dL (6.4-8.2)
[2020-08-26] MEDS ORDERED: ZOFRAN ODT4 MG PO (20:59)
[2020-08-26] MEDS ORDERED: CEPHALEXIN500 MG PO (20:59)
[2020-08-26] MEDS ORDERED: NORCO 10-325 T1 EACH PO (20:59)
[2020-08-26 21:25] VITALS: BP 111/58
== END 2020-08-26 21:25 | disposition home or self-care (01) ==
LOC: ER 16:54
PROVIDERS: Emergency Medicine; Physician Assistant
DX: N39.0 Urinary tract infection, site not specified (principal); R10.84 Generalized abdominal pain; R11.2 Nausea with vomiting, unspecified; Z79.899 Other long term (current) drug therapy; Z98.84 Bariatric surgery status; Z90.49 Acquired absence of other specified parts of digestive tract

== ENCOUNTER 2020-08-28 04:29 | Emergency (ER) | payer OTHER ==
[~2020-08-28] VITALS: Ht 162.6 cm; Wt 102.1 kg
[~2020-08-28 04:29] MED LIST changes: +CEPHALEXIN500 MG PO; +NORCO 10-325 T1 EACH PO; +ZOFRAN ODT4 MG PO
[2020-08-28 05:34] LABS: URINE BILIRUBIN NEGATIVE (Negative); URINE BLOOD 1+ (Negative); URINE CLARITY CLEAR; URINE COLOR YELLOW; URINE GLUCOSE-RANDOM* NEGATIVE (Negative); URINE KETONES NEGATIVE (Negative); URINE NITRITE-REFLEX NEGATIVE (Negative); URINE PROTEIN (DIPSTICK) NEGATIVE (Negative); URINE UROBILINOGEN 0.2 E.U./dl (0.2-1.0)
[2020-08-28 05:47] LABS: URINE LEUKOCYTES-REFLEX 1+ (Negative)
[2020-08-28 06:18] LABS: ABSOLUTE NEUTROPHILS 4.3 thou/uL (1.4-8.2); BASOPHILS 1.2 % (0.0-2.0); EOSINOPHILS 2.7 % (0.0-3.0); HEMATOCRIT 35.8 % (37.0-47.0); HEMOGLOBIN 11.7 gm/dL (12.0-15.0); LYMPHOCYTES 35.4 % (24.0-44.0); MCH 29.4 pg (26.0-34.0); MCHC 32.7 g/dL (28.0-37.0); MONOCYTES 6.6 % (1.0-8.0); PLATELET COUNT 301 thou/uL (150-400); POLYS 54.1 % (36.0-66.0); RBC 3.98 mil/uL (4.20-5.00); RDW 13.8 % (10.5-14.5)
[2020-08-28 06:45] LABS: CALCIUM 8.5 mg/dL (8.5-10.1); POTASSIUM 4.3 mmol/L (3.5-5.1)
[2020-08-28 06:51] LABS: TOTAL BILIRUBIN 0.3 mg/dL (0.2-1.0); TOTAL PROTEIN 6.8 g/dL (6.4-8.2)
[2020-08-28 07:12] LABS: CASTS None Seen /LPF (None Seen); SQUAMOUS 4-10 Moderate /LPF (0-3)
[2020-08-28 07:13] LABS: BACTERIA-REFLEX None Seen /HPF (None Seen); CRYSTALS None Seen /LPF (None Seen); URINE RBC 0-2 Rare /HPF (0-2); URINE WBC-REFLEX 0-5 Rare /HPF (0-5)
[2020-08-28] MEDS ORDERED: PERCOCET 5-3251 EACH PO (08:19)
[2020-08-28 08:45] VITALS: BP 126/62
== END 2020-08-28 08:45 | disposition home or self-care (01) ==
LOC: ER 04:29
PROVIDERS: Emergency Medicine
DX: R10.31 Right lower quadrant pain (principal); Z79.899 Other long term (current) drug therapy

== ENCOUNTER 2020-09-13 22:48 | Emergency (ER) | payer OTHER ==
[~2020-09-13] VITALS: Ht 162.6 cm; Wt 102.1 kg
[~2020-09-13 22:48] MED LIST changes: +PERCOCET 5-3251 EACH PO
[2020-09-13 23:10] LABS: URINE BILIRUBIN NEGATIVE (Negative); URINE BLOOD TRACE (Negative); URINE CLARITY CLEAR; URINE COLOR YELLOW; URINE GLUCOSE-RANDOM* NEGATIVE (Negative); URINE KETONES NEGATIVE (Negative); URINE NITRITE-REFLEX NEGATIVE (Negative); URINE PROTEIN (DIPSTICK) NEGATIVE (Negative); URINE SPECIFIC GRAVITY 1.015 (1.005-1.035); URINE UROBILINOGEN 0.2 E.U./dl (0.2-1.0)
[2020-09-13 23:12] LABS: URINE LEUKOCYTES-REFLEX 1+ (Negative)
[2020-09-13] MEDS ORDERED: LEVO-T75 MCG PO (23:29)
[2020-09-13 23:38] LABS: ABSOLUTE NEUTROPHILS 3.7 thou/uL (1.4-8.2); BASOPHILS 0.6 % (0.0-2.0); EOSINOPHILS 3.2 % (0.0-3.0); HEMATOCRIT 36.2 % (37.0-47.0); HEMOGLOBIN 11.9 gm/dL (12.0-15.0); LYMPHOCYTES 32.1 % (24.0-44.0); MCH 29.7 pg (26.0-34.0); MCHC 32.9 g/dL (28.0-37.0); MCV 90.4 fL (80.0-100.0); MONOCYTES 10.2 % (1.0-8.0); PLATELET COUNT 378 thou/uL (150-400); POLYS 53.9 % (36.0-66.0); RDW 14.1 % (10.5-14.5); WBC 6.8 thou/uL (4.0-11.0)
[2020-09-13 23:39] LABS: CASTS None Seen /LPF (None Seen); MUCUS None Seen strn/LPF (None Seen); SQUAMOUS >10 Many /LPF (0-3)
[2020-09-13 23:40] LABS: BACTERIA-REFLEX 1-9 Few /HPF (None Seen); CRYSTALS None Seen /LPF (None Seen); URINE RBC None Seen /HPF (NONE SEEN); URINE WBC-REFLEX 0-5 Rare /HPF (0-5)
[2020-09-13 23:48] LABS: CALCIUM 8.8 mg/dL (8.5-10.1); POTASSIUM 4.2 mmol/L (3.5-5.1)
[2020-09-14 00:07] LABS: ALBUMIN 3.4 g/dL (3.4-5.0); DIRECT BILIRUBIN 0.1 mg/dL (<0.1-0.2); TOTAL BILIRUBIN 0.5 mg/dL (0.2-1.0); TOTAL PROTEIN 7.9 g/dL (6.4-8.2)
[2020-09-14] MEDS ORDERED: FLEXERIL PO (02:50)
[2020-09-14 03:40] VITALS: BP 103/63
[2020-09-17] MEDS ORDERED: MACROBID 100 M100 M1 PO (15:15)
== END 2020-09-14 03:30 | disposition home or self-care (01) ==
LOC: ER 22:48
PROVIDERS: Emergency Medicine
DX: M54.2 Cervicalgia (principal); M54.5 Low back pain; R30.0 Dysuria; R10.32 Left lower quadrant pain; R11.2 Nausea with vomiting, unspecified; R19.7 Diarrhea, unspecified; R35.0 Frequency of micturition; F32.9 Major depressive disorder, single episode, unspecified; F41.9 Anxiety disorder, unspecified; Z98.84 Bariatric surgery status; Z90.49 Acquired absence of other specified parts of digestive tract; Z87.42 Personal history of other diseases of the female genital tract; Z79.899 Other long term (current) drug therapy

== ENCOUNTER 2020-10-02 11:41 | Emergency (ER) | payer OTHER ==
[~2020-10-02] VITALS: Ht 162.6 cm; Wt 102.1 kg
[~2020-10-02 11:41] MED LIST changes: +FLEXERIL PO; +LEVO-T75 MCG PO; +MACROBID 100 M100 M1 PO
[2020-10-02 12:24] LABS: URINE BILIRUBIN NEGATIVE (Negative); URINE BLOOD TRACE (Negative); URINE CLARITY CLEAR; URINE COLOR YELLOW; URINE GLUCOSE-RANDOM* NEGATIVE (Negative); URINE KETONES NEGATIVE (Negative); URINE LEUKOCYTES-REFLEX 1+ (Negative); URINE NITRITE-REFLEX NEGATIVE (Negative); URINE PROTEIN (DIPSTICK) NEGATIVE (Negative)
[2020-10-02 12:38] LABS: ABSOLUTE NEUTROPHILS 3.6 thou/uL (1.4-8.2); BASOPHILS 1.4 % (0.0-2.0); EOSINOPHILS 2.1 % (0.0-3.0); HEMATOCRIT 39.3 % (37.0-47.0); HEMOGLOBIN 13.2 gm/dL (12.0-15.0); LYMPHOCYTES 36.7 % (24.0-44.0); MCH 29.6 pg (26.0-34.0); MCHC 33.5 g/dL (28.0-37.0); MCV 88.4 fL (80.0-100.0); MONOCYTES 7.1 % (1.0-8.0); PLATELET COUNT 288 thou/uL (150-400); POLYS 52.7 % (36.0-66.0); RBC 4.44 mil/uL (4.20-5.00); RDW 13.7 % (10.5-14.5); WBC 6.9 thou/uL (4.0-11.0)
[2020-10-02 12:47] LABS: CASTS None Seen /LPF (None Seen); CRYSTALS None Seen /LPF (None Seen); MUCUS 4-6 Moderate strn/LPF (None Seen); SQUAMOUS 0-3 Few /LPF (0-3)
[2020-10-02 12:49] LABS: BACTERIA-REFLEX 1-9 Few /HPF (None Seen); URINE RBC 1-2 Rare /HPF (NONE SEEN); URINE WBC-REFLEX 0-5 Rare /HPF (0-5)
[2020-10-02 13:03] LABS: CALCIUM 8.6 mg/dL (8.5-10.1); CREATININE 0.9 mg/dL (0.6-1.0); POTASSIUM 3.9 mmol/L (3.5-5.1)
[2020-10-02 13:09] LABS: ALBUMIN 3.2 g/dL (3.4-5.0); TOTAL BILIRUBIN 0.4 mg/dL (0.2-1.0); TOTAL PROTEIN 7.6 g/dL (6.4-8.2)
[2020-10-02] MEDS ORDERED: NORCO5 PO (14:08)
[2020-10-02] MEDS ORDERED: CIPRO500 M1 PO (14:08)
[2020-10-02] MEDS ORDERED: PHENERGAN 25 MG25 M1 PO (14:08)
[2020-10-02 14:16] VITALS: BP 105/57
== END 2020-10-02 14:17 | disposition home or self-care (01) ==
LOC: ER 11:41
PROVIDERS: Physician Assistant
DX: N39.0 Urinary tract infection, site not specified (principal); M54.5 Low back pain; R10.30 Lower abdominal pain, unspecified; Z79.899 Other long term (current) drug therapy; Z87.442 Personal history of urinary calculi

== ENCOUNTER 2020-10-19 06:00 | Emergency (ER) | payer OTHER ==
[~2020-10-19] VITALS: Ht 162.6 cm; Wt 102.1 kg
[2020-10-19 06:35] LABS: URINE BILIRUBIN NEGATIVE (Negative); URINE BLOOD TRACE (Negative); URINE CLARITY CLEAR; URINE COLOR YELLOW; URINE GLUCOSE-RANDOM* NEGATIVE (Negative); URINE KETONES NEGATIVE (Negative); URINE NITRITE-REFLEX NEGATIVE (Negative); URINE PROTEIN (DIPSTICK) NEGATIVE (Negative); URINE SPECIFIC GRAVITY 1.015 (1.005-1.035)
[2020-10-19 06:37] LABS: URINE LEUKOCYTES-REFLEX 1+ (Negative)
[2020-10-19 08:22] LABS: SQUAMOUS >10 Many /LPF (0-3)
[2020-10-19 08:23] LABS: BACTERIA-REFLEX 1-9 Few /HPF (None Seen); CASTS None Seen /LPF (None Seen); CRYSTALS None Seen /LPF (None Seen); URINE RBC 3-10 Few /HPF (NONE SEEN); URINE WBC-REFLEX 0-5 Rare /HPF (0-5)
[2020-10-19 09:29] VITALS: BP 99/62
== END 2020-10-19 09:30 | disposition home or self-care (01) ==
LOC: ER 06:00
PROVIDERS: Emergency Medicine
DX: M54.5 Low back pain (principal); R10.84 Generalized abdominal pain; Z79.899 Other long term (current) drug therapy; Z87.442 Personal history of urinary calculi; Z90.49 Acquired absence of other specified parts of digestive tract

== ENCOUNTER 2020-10-23 01:34 | Emergency (ER) | payer OTHER ==
[~2020-10-23] VITALS: Ht 162.6 cm; Wt 102.1 kg
[2020-10-23 02:41] LABS: URINE BILIRUBIN NEGATIVE (Negative); URINE BLOOD 1+ (Negative); URINE CLARITY CLEAR; URINE COLOR YELLOW; URINE GLUCOSE-RANDOM* NEGATIVE (Negative); URINE KETONES NEGATIVE (Negative); URINE NITRITE-REFLEX NEGATIVE (Negative); URINE PROTEIN (DIPSTICK) NEGATIVE (Negative)
[2020-10-23 02:43] LABS: URINE LEUKOCYTES-REFLEX 1+ (Negative)
[2020-10-23 02:44] LABS: HEMATOCRIT 35.4 % (37.0-47.0); HEMOGLOBIN 11.7 gm/dL (12.0-15.0); MCH 29.7 pg (26.0-34.0); MCHC 33.2 g/dL (28.0-37.0); MCV 89.4 fL (80.0-100.0); RBC 3.95 mil/uL (4.20-5.00); RDW 14.1 % (10.5-14.5)
[2020-10-23 03:07] LABS: CALCIUM 8.5 mg/dL (8.5-10.1); CREATININE 1.3 mg/dL (0.6-1.0); POTASSIUM 4.6 mmol/L (3.5-5.1)
[2020-10-23 03:12] LABS: ALBUMIN 2.9 g/dL (3.4-5.0); TOTAL BILIRUBIN 0.3 mg/dL (0.2-1.0); TOTAL PROTEIN 7.2 g/dL (6.4-8.2)
[2020-10-23 03:17] LABS: BACTERIA-REFLEX 1-9 Few /HPF (None Seen); CASTS None Seen /LPF (None Seen); CRYSTALS None Seen /LPF (None Seen); MUCUS 4-6 Moderate strn/LPF (None Seen); SQUAMOUS 4-10 Moderate /LPF (0-3); URINE RBC 3-10 Few /HPF (NONE SEEN); URINE WBC-REFLEX 6-15 Few /HPF (0-5)
[2020-10-23 04:42] VITALS: BP 119/63
== END 2020-10-23 04:44 | disposition home or self-care (01) ==
LOC: ER 01:34
PROVIDERS: Student in an Organized Health Care Education/Training Program
DX: M54.6 Pain in thoracic spine (principal); R10.84 Generalized abdominal pain; R11.10 Vomiting, unspecified; E66.9 Obesity, unspecified; Z79.899 Other long term (current) drug therapy; Z87.442 Personal history of urinary calculi; Z90.49 Acquired absence of other specified parts of digestive tract

== ENCOUNTER 2020-11-23 19:29 | Emergency (ER) | payer OTHER ==
[~2020-11-23] VITALS: Ht 162.6 cm; Wt 102.1 kg
[2020-11-23 23:47] LABS: URINE BILIRUBIN NEGATIVE (Negative); URINE BLOOD TRACE (Negative); URINE CLARITY SL CLOUDY; URINE COLOR YELLOW; URINE GLUCOSE-RANDOM* NEGATIVE (Negative); URINE KETONES NEGATIVE (Negative); URINE PROTEIN (DIPSTICK) NEGATIVE (Negative); URINE SPECIFIC GRAVITY 1.015 (1.005-1.035); URINE UROBILINOGEN 0.2 E.U./dl (0.2-1.0)
[2020-11-23 23:49] LABS: ABSOLUTE NEUTROPHILS 4.8 thou/uL (1.4-8.2); BASOPHILS 0.6 % (0.0-2.0); HEMATOCRIT 36.5 % (37.0-47.0); HEMOGLOBIN 12.4 gm/dL (12.0-15.0); MCH 29.5 pg (26.0-34.0); MCHC 33.9 g/dL (28.0-37.0); MCV 86.9 fL (80.0-100.0); MONOCYTES 4.7 % (1.0-8.0); PLATELET COUNT 352 thou/uL (150-400); POLYS 60.7 % (36.0-66.0); RDW 14.1 % (10.5-14.5); WBC 7.8 thou/uL (4.0-11.0)
[2020-11-23 23:50] LABS: URINE LEUKOCYTES-REFLEX 3+ (Negative); URINE NITRITE-REFLEX POSITIVE (Negative)
[2020-11-23 23:57] LABS: SQUAMOUS 4-10 Moderate /LPF (0-3)
[2020-11-23 23:58] LABS: CASTS None Seen /LPF (None Seen); CRYSTALS None Seen /LPF (None Seen); MUCUS 4-6 Moderate strn/LPF (None Seen); URINE RBC 1-2 Rare /HPF (NONE SEEN)
[2020-11-24 00:04] LABS: CALCIUM 8.5 mg/dL (8.5-10.1); POTASSIUM 4.5 mmol/L (3.5-5.1)
[2020-11-24 00:08] LABS: ALBUMIN 3.5 g/dL (3.4-5.0); TOTAL BILIRUBIN 0.6 mg/dL (0.2-1.0); TOTAL PROTEIN 7.7 g/dL (6.4-8.2)
[2020-11-24] MEDS ORDERED: CEPHALEXIN500 MG PO (01:58)
[2020-11-24] MEDS ORDERED: NORCO5 PO (01:59)
[2020-11-24 02:16] VITALS: BP 115/44
== END 2020-11-24 02:15 | disposition home or self-care (01) ==
LOC: ER 19:29
PROVIDERS: Emergency Medicine
DX: N12 Tubulo-interstitial nephritis, not specified as acute or chronic (principal); Z90.49 Acquired absence of other specified parts of digestive tract; F41.9 Anxiety disorder, unspecified; Z79.899 Other long term (current) drug therapy

== ENCOUNTER 2020-12-06 18:02 | Emergency (ER) | payer OTHER ==
[~2020-12-06] VITALS: Ht 162.6 cm; Wt 103.0 kg
[2020-12-06 18:32] LABS: ABSOLUTE NEUTROPHILS 3.3 thou/uL (1.4-8.2); BASOPHILS 1.2 % (0.0-2.0); EOSINOPHILS 4.9 % (0.0-3.0); HEMATOCRIT 36.9 % (37.0-47.0); HEMOGLOBIN 12.2 gm/dL (12.0-15.0); LYMPHOCYTES 32.9 % (24.0-44.0); MCH 28.8 pg (26.0-34.0); MCV 87.4 fL (80.0-100.0); MONOCYTES 5.7 % (1.0-8.0); PLATELET COUNT 352 thou/uL (150-400); POLYS 55.3 % (36.0-66.0); RBC 4.22 mil/uL (4.20-5.00); RDW 14.1 % (10.5-14.5)
[2020-12-06 18:33] LABS: URINE BILIRUBIN NEGATIVE (Negative); URINE BLOOD 2+ (Negative); URINE CLARITY CLEAR; URINE COLOR YELLOW; URINE GLUCOSE-RANDOM* NEGATIVE (Negative); URINE KETONES TRACE (Negative); URINE NITRITE-REFLEX NEGATIVE (Negative); URINE PROTEIN (DIPSTICK) NEGATIVE (Negative); URINE UROBILINOGEN 0.2 E.U./dl (0.2-1.0)
[2020-12-06 18:34] LABS: URINE LEUKOCYTES-REFLEX 3+ (Negative)
[2020-12-06 18:41] LABS: SQUAMOUS >10 Many /LPF (0-3)
[2020-12-06 18:41] LABS: CALCIUM 8.6 mg/dL (8.5-10.1); CREATININE 1.4 mg/dL (0.6-1.0); POTASSIUM 4.6 mmol/L (3.5-5.1)
[2020-12-06 18:42] LABS: BACTERIA-REFLEX >30 Many /HPF (None Seen); CASTS None Seen /LPF (None Seen); URINE WBC-REFLEX >25 Many /HPF (0-5)
[2020-12-06 18:44] LABS: CRYSTALS None Seen /LPF (None Seen); URINE RBC 3-10 Few /HPF (NONE SEEN); YEAST-REFLEX Present (None Seen)
[2020-12-06 20:31] LABS: ALBUMIN 3.6 g/dL (3.4-5.0); DIRECT BILIRUBIN < 0.1 mg/dL (<0.1-0.2); LIPASE 184 U/L (73-393); SGOT 26 U/L (15-37); SGPT 29 U/L (14-59); TOTAL BILIRUBIN 0.4 mg/dL (0.2-1.0); TOTAL PROTEIN 7.7 g/dL (6.4-8.2)
[2020-12-06] MEDS ORDERED: CEPHALEXIN500 MG PO (21:03)
[2020-12-06] MEDS ORDERED: ONDANSETRON HCL4 M2 PO (21:03)
[2020-12-06] MEDS ORDERED: DIFLUCAN100 MG PO (21:03)
[2020-12-06 21:13] VITALS: BP 116/69
== END 2020-12-06 21:20 | disposition home or self-care (01) ==
LOC: ER 18:02
PROVIDERS: Nurse Practitioner
DX: B37.49 Other urogenital candidiasis (principal); R11.2 Nausea with vomiting, unspecified; K59.00 Constipation, unspecified; F32.9 Major depressive disorder, single episode, unspecified; F41.9 Anxiety disorder, unspecified; Z79.899 Other long term (current) drug therapy; Z90.49 Acquired absence of other specified parts of digestive tract; Z20.822 Contact with and (suspected) exposure to COVID-19

== ENCOUNTER 2020-12-09 03:37 | Emergency (ER) | payer OTHER ==
[~2020-12-09] VITALS: Ht 162.6 cm; Wt 103.0 kg
[~2020-12-09 03:37] MED LIST changes: +DIFLUCAN100 MG PO
[2020-12-09 04:45] LABS: ANION GAP 11 mmol/L (7-16); BUN 16 mg/dL (7-18); CALCIUM 8.5 mg/dL (8.5-10.1); CHLORIDE 103 mmol/L (98-107); CO2 25 mmol/L (21-32); CREATININE 1.2 mg/dL (0.6-1.0); GLUCOSE 85 mg/dL (74-106); POTASSIUM 4.2 mmol/L (3.5-5.1); SODIUM 139 mmol/L (136-145)
[2020-12-09 04:51] LABS: ALBUMIN 3.4 g/dL (3.4-5.0); DIRECT BILIRUBIN < 0.1 mg/dL (<0.1-0.2); LIPASE 304 U/L (73-393); SGOT 25 U/L (15-37); SGPT 27 U/L (14-59); TOTAL BILIRUBIN 0.3 mg/dL (0.2-1.0); TOTAL PROTEIN 7.4 g/dL (6.4-8.2)
[2020-12-09 04:54] LABS: URINE BILIRUBIN NEGATIVE (Negative); URINE BLOOD 1+ (Negative); URINE CLARITY SL CLOUDY; URINE COLOR YELLOW; URINE GLUCOSE-RANDOM* NEGATIVE (Negative); URINE KETONES NEGATIVE (Negative); URINE NITRITE-REFLEX NEGATIVE (Negative); URINE PROTEIN (DIPSTICK) NEGATIVE (Negative); URINE UROBILINOGEN 0.2 E.U./dl (0.2-1.0)
[2020-12-09 04:56] LABS: ABSOLUTE NEUTROPHILS 4.1 thou/uL (1.4-8.2); BASOPHILS 0.9 % (0.0-2.0); EOSINOPHILS 3.5 % (0.0-3.0); HEMATOCRIT 35.5 % (37.0-47.0); LYMPHOCYTES 35.8 % (24.0-44.0); MCH 29.3 pg (26.0-34.0); MCHC 33.9 g/dL (28.0-37.0); MCV 86.4 fL (80.0-100.0); MONOCYTES 6.8 % (1.0-8.0); PLATELET COUNT 330 thou/uL (150-400); RBC 4.11 mil/uL (4.20-5.00); RDW 14.2 % (10.5-14.5); WBC 7.8 thou/uL (4.0-11.0)
[2020-12-09 05:03] LABS: URINE LEUKOCYTES-REFLEX 3+ (Negative)
[2020-12-09 05:08] LABS: BACTERIA-REFLEX 1-9 Few /HPF (None Seen); CASTS None Seen /LPF (None Seen); CRYSTALS None Seen /LPF (None Seen); MUCUS 0-3 Light strn/LPF (None Seen); SQUAMOUS 4-10 Moderate /LPF (0-3); URINE RBC 3-10 Few /HPF (NONE SEEN)
[2020-12-09] MEDS ORDERED: REGLAN 5 MG TAB5 MG PO (05:52)
[2020-12-09] MEDS ORDERED: MOBIC15 MG PO (05:52)
[2020-12-09 06:18] VITALS: BP 105/72
== END 2020-12-09 06:20 | disposition home or self-care (01) ==
LOC: ER 03:37
PROVIDERS: Emergency Medicine
DX: R10.84 Generalized abdominal pain (principal); R11.2 Nausea with vomiting, unspecified; F32.9 Major depressive disorder, single episode, unspecified; F41.9 Anxiety disorder, unspecified; Z90.49 Acquired absence of other specified parts of digestive tract; Z79.899 Other long term (current) drug therapy

== ENCOUNTER 2021-01-16 22:42 | Emergency (ER) | payer OTHER ==
[~2021-01-16] VITALS: Ht 162.6 cm; Wt 104.3 kg
[~2021-01-16 22:42] MED LIST changes: +MOBIC15 MG PO; +REGLAN 5 MG TAB5 MG PO
[2021-01-16] MEDS ORDERED: INDERAL40 MG PO (22:51)
[2021-01-16 22:54] LABS: URINE BILIRUBIN NEGATIVE (Negative); URINE BLOOD 1+ (Negative); URINE CLARITY CLEAR; URINE COLOR YELLOW; URINE GLUCOSE-RANDOM* NEGATIVE (Negative); URINE KETONES NEGATIVE (Negative); URINE LEUKOCYTES-REFLEX NEGATIVE (Negative); URINE NITRITE-REFLEX NEGATIVE (Negative); URINE PROTEIN (DIPSTICK) NEGATIVE (Negative); URINE SPECIFIC GRAVITY <= 1.005 (1.005-1.035); URINE UROBILINOGEN 0.2 E.U./dl (0.2-1.0)
[2021-01-16 23:11] LABS: ABSOLUTE NEUTROPHILS 4.1 thou/uL (1.4-8.2); EOSINOPHILS 2.9 % (0.0-3.0); HEMATOCRIT 35.7 % (37.0-47.0); MCH 28.4 pg (26.0-34.0); MCHC 33.5 g/dL (28.0-37.0); MCV 84.9 fL (80.0-100.0); MONOCYTES 7.8 % (1.0-8.0); PLATELET COUNT 311 thou/uL (150-400); POLYS 56.3 % (36.0-66.0); RDW 14.4 % (10.5-14.5); WBC 7.3 thou/uL (4.0-11.0)
[2021-01-16 23:15] LABS: CALCIUM 8.5 mg/dL (8.5-10.1); POTASSIUM 4.1 mmol/L (3.5-5.1)
[2021-01-16 23:22] LABS: ALBUMIN 3.4 g/dL (3.4-5.0); TOTAL BILIRUBIN 0.5 mg/dL (0.2-1.0); TOTAL PROTEIN 7.6 g/dL (6.4-8.2)
[2021-01-16] MEDS ORDERED: REGLAN 10 MG TA10 MG PO (23:35)
[2021-01-16 23:42] VITALS: BP 154/64
[2021-01-17] LABS: BACTERIA-REFLEX None Seen /HPF (None Seen); CASTS None Seen /LPF (None Seen); CRYSTALS None Seen /LPF (None Seen); MUCUS None Seen strn/LPF (None Seen); SQUAMOUS None Seen /LPF (0-3); URINE RBC 1-2 Rare /HPF (NONE SEEN); URINE WBC-REFLEX None Seen /HPF (0-5)
== END 2021-01-16 23:42 | disposition home or self-care (01) ==
LOC: ER 22:42
PROVIDERS: Emergency Medicine
DX: G89.29 Other chronic pain (principal); R11.2 Nausea with vomiting, unspecified; R10.31 Right lower quadrant pain; F32.9 Major depressive disorder, single episode, unspecified; F41.9 Anxiety disorder, unspecified; Z90.49 Acquired absence of other specified parts of digestive tract; Z79.899 Other long term (current) drug therapy

== ENCOUNTER 2021-03-21 14:35 | Emergency (ER) | payer OTHER ==
[~2021-03-21] VITALS: Ht 162.6 cm; Wt 103.0 kg
[~2021-03-21 14:35] MED LIST changes: +INDERAL40 MG PO; +REGLAN 10 MG TA10 MG PO
[2021-03-21 15:00] LABS: URINE BILIRUBIN NEGATIVE (Negative); URINE BLOOD 2+ (Negative); URINE CLARITY CLEAR; URINE COLOR YELLOW; URINE GLUCOSE-RANDOM* NEGATIVE (Negative); URINE KETONES NEGATIVE (Negative); URINE NITRITE-REFLEX NEGATIVE (Negative); URINE PROTEIN (DIPSTICK) NEGATIVE (Negative); URINE UROBILINOGEN 0.2 E.U./dl (0.2-1.0)
[2021-03-21 15:02] LABS: URINE LEUKOCYTES-REFLEX 3+ (Negative)
[2021-03-21 15:11] LABS: CASTS None Seen /LPF (None Seen); SQUAMOUS 4-10 Moderate /LPF (0-3); URINE RBC 3-10 Few /HPF (NONE SEEN)
[2021-03-21 15:12] LABS: CRYSTALS None Seen /LPF (None Seen)
[2021-03-21 15:40] LABS: HEMATOCRIT 38.6 % (37.0-47.0); HEMOGLOBIN 12.4 gm/dL (12.0-15.0); MCH 27.2 pg (26.0-34.0); MCHC 32.1 g/dL (28.0-37.0); MCV 84.9 fL (80.0-100.0); RBC 4.55 mil/uL (4.20-5.00); RDW 14.9 % (10.5-14.5); WBC 5.7 thou/uL (4.0-11.0)
[2021-03-21 15:48] LABS: URINE BILIRUBIN NEGATIVE (Negative); URINE BLOOD 2+ (Negative); URINE CLARITY CLEAR; URINE COLOR YELLOW; URINE GLUCOSE-RANDOM* NEGATIVE (Negative); URINE KETONES NEGATIVE (Negative); URINE LEUKOCYTES-REFLEX NEGATIVE (Negative); URINE NITRITE-REFLEX NEGATIVE (Negative); URINE PROTEIN (DIPSTICK) NEGATIVE (Negative); URINE SPECIFIC GRAVITY 1.025 (1.005-1.035); URINE UROBILINOGEN 0.2 E.U./dl (0.2-1.0)
[2021-03-21 15:51] LABS: CALCIUM 8.7 mg/dL (8.5-10.1); CREATININE 0.9 mg/dL (0.6-1.0); POTASSIUM 3.9 mmol/L (3.5-5.1)
[2021-03-21 15:57] LABS: ALBUMIN 3.5 g/dL (3.4-5.0); TOTAL BILIRUBIN 0.7 mg/dL (0.2-1.0); TOTAL PROTEIN 7.6 g/dL (6.4-8.2)
[2021-03-21 16:04] LABS: CASTS None Seen /LPF (None Seen); SQUAMOUS 4-10 Moderate /LPF (0-3); URINE WBC-REFLEX 0-5 Rare /HPF (0-5)
[2021-03-21 16:05] LABS: BACTERIA-REFLEX 1-9 Few /HPF (None Seen); CRYSTALS None Seen /LPF (None Seen); URINE RBC 3-10 Few /HPF (NONE SEEN)
[2021-03-21] MEDS ORDERED: NORCO5 PO (17:54)
[2021-03-21] MEDS ORDERED: ZOFRAN ODT4 MG PO (17:54)
[2021-03-21 18:35] VITALS: BP 118/71
== END 2021-03-21 18:36 | disposition home or self-care (01) ==
LOC: ER 14:35
PROVIDERS: Nurse Practitioner Family
DX: N20.1 Calculus of ureter (principal); F32.9 Major depressive disorder, single episode, unspecified; F41.9 Anxiety disorder, unspecified; Z87.442 Personal history of urinary calculi; Z90.49 Acquired absence of other specified parts of digestive tract; Z79.891 Long term (current) use of opiate analgesic; Z79.899 Other long term (current) drug therapy